=== PATIENT | female | born 1960 | race African-American/Black ===

== ENCOUNTER 2016-05-09 19:44 | Emergency (ER) | payer OTHER ==
[2016-05-09 19:58] VITALS: BP 161/97; PULSE 89; TEMP 98.1; BMI 32.5
--- NOTE | 2016-05-09 20:02 | PDOC ---
[id number] 4d LT SHOULDER PAIN - History of Present Illness Initial Comments: 05/09/16 20:02 CHIEF COMPLAINT: Shoulder pain HISTORY OF PRESENT ILLNESS: 55 yo F with PMH of glaucoma presents to [facility] with shoulder pain x 2 days. [place] when her bag fell off her shoulder and "kind of jerked it down." Over the next two days her shoulder has been increasing in pain and today she feels like she can't move it. Patient denies any other trauma or gross injury to shoulder. Patient states the pain begins at nape of neck and is worst over her left shoulder. She denies any chest pain, shortness of breath, headache, change in speech or vision, or difficulty walking. PAST MEDICAL HISTORY: glaucoma s/p lens implant FAMILY HISTORY: Denies SOCIAL HISTORY:Denies tobacco, alcohol, illicit drug use. SURGICAL HISTORY: Denies ALLERGIES: No known drug allergies REVIEW OF SYSTEMS General/Constitutional: Denies fever or chills. HEENT: Denies change in vision. Denies ear pain or discharge. Denies sore throat. Cardiovascular: Denies chest pain or shortness of breath. Gastrointestinal: Denies nausea, vomiting, diarrhea or constipation. Musculoskeletal: "My shoulder hurts." Skin: Denies bruising. Neurologic: Denies headache, vertigo, loss of consciousness, or loss of sensation. PHYSICAL EXAM General Appearance: Well-appearing, appropriately dressed. No apparent distress , no intoxication. HEENT: L lens implant. No conjunctival pallor. No photophobia, scleral icterus. Neck: Supple. No midline tenderness to cervical spine. Trachea midline. No tenderness, rigidity, carotid bruit, stridor, lymphadenopathy, or thyromegaly. Respiratory/Chest: Lungs CTAB. Cardiovascular: RRR. S1, S2. Musculoskeletal/Extremities: Limited ROM to L shoulder, limited abduction. Positive Neer-Bose test. Positive empty can test. Tenderness to supraspinatus muscle on palpation. Pelvis Stable. No CVA tenderness. Integumentary: Appropriate color, dry, warm. No cyanosis, erythema, jaundice or rash Neurologic: medical dosimetrist II-XII intact. Fully oriented, alert. Appropriate mood/affect. Motor strength 5/5. No appreciable EOM palsy, facial droop or sensory deficit. Past History - Past Medical History Allergies/Adverse Reactions: Allergies Allergy/AdvReac Type Severity Reaction Status Date / Time No Known Allergies Allergy Verified 05/09/16 19:56 Home Medications: Ambulatory Orders Naproxen [Naprosyn -] 250 mg PO BID #14 tablet 05/09/16 Other medical history: narrow angle glaucoma - Psycho/Social/Smoking Cessation Hx Anxiety: No Suicidal Ideation: No Smoking Status: No Smoking History: Never smoked Have you smoked in the past 12 months: No Number of Cigarettes Smoked Daily: 0 Information on smoking cessation initiated: No 'Breaking Loose' booklet given: 01/09/12 Hx Alcohol Use: No Drug/Substance Use Hx: No Substance Use Type: None Hx Substance Use Treatment: No *Physical Exam - Vital Signs Last Vital Signs Temp Pulse Resp BP Pulse Ox 98.1 F 89 18 161/97 99 05/09/16 19:56 05/09/16 19:56 05/09/16 19:56 05/09/16 19:56 05/09/16 19:56 Medical Decision Making - Medical Decision Making 55 yo F with hx of glaucoma presents to [facility] with left shoulder pain. -left shoulder x-ray -Toradol 60 mg IM X-ray negative for fracture or dislocation, but findings indicate possible rotator cuff pathology. This is consistent with clinical presentation and physical exam, will discharge to home with meds for pain control and close follow up with ortho. -250 mg Naproxen bid x 1 week Advised patient to take medication as prescribed and that she must follow up with ortho. Ortho referral provided. Advised patient of signs and symptoms for return to ER; patient verbalized understanding and agrees to plan. *DC/Admit/Observation/Transfer Diagnosis at time of Disposition: Tendinopathy of rotator cuff Qualifiers: Laterality: left Qualified Code(s): M67.912 - Unspecified disorder of synovium and tendon, left shoulder - Discharge Dispostion Disposition: HOME Condition at time of disposition: Stable Admit: No - Prescriptions Prescriptions: Naproxen [Naprosyn -] 250 mg PO BID #14 tablet - Referrals Referrals: Tori Virk MD [Primary Care Provider] - Alvaro Jean Baptiste MD [Staff Physician] - - Patient Instructions Printed Discharge Instructions: DI for Rotator Cuff Injury, Shoulder Tendinopathy Additional Instructions: Please take medication as prescribed and follow up with orthopedics on Wednesday further evaluation and possible referral to physical therapy. If you experience numbness or tingling, loss of sensation, increased pain, chest pain, shortness of breath, sudden sharp headache, or any new or worsening symptoms please return to the ER.
[2016-05-09] MEDS ORDERED: KETOROLAC TROMETHAMINE 60 MG/2 ML VIAL IM ONE (20:22)
== END 2016-05-09 21:14 | disposition home or self-care (01) ==
LOC: JERFT 19:44
PROC: 3E0233Z Introduction of Anti-inflammatory into Muscle, Percutaneous Approach (ICD-10-PCS; principal; 2016-05-09)
DX: M67.912 Unspecified disorder of synovium and tendon, left shoulder (principal)
CPT/HCPCS: 73030-TC-LT; 99281-25

== ENCOUNTER 2016-07-27 19:59 | Emergency (ER) | payer OTHER ==
[2016-07-27 20:19] VITALS: BP 170/90; PULSE 87; TEMP 99.3; BMI 36.2
[2016-07-27] MEDS ORDERED: KETOROLAC TROMETHAMINE 60 MG/2 ML VIAL IM ONE (21:42)
[2016-07-27] MEDS ORDERED: diazePAM 5 MG TABLET PO ONE (21:42)
[2016-07-27] MEDS ORDERED: KETOROLAC TROMETHAMINE 60 MG/2 ML VIAL ONE (21:47)
[2016-07-27] MEDS ORDERED: diazePAM 5 MG TABLET ONE (21:47)
--- NOTE | 2016-07-27 21:47 | PDOC ---
History of Present Illness - General Chief Complaint: Pain Stated Complaint: HIP PAIN/RT LEG PAIN Time Seen by Provider: 07/27/16 21:27 History Source: Patient - History of Present Illness Occurred: reports: other Severity: reports: severe Pain Location: reports: lower extremity Method of Injury: Yes: fall Past History - Past Medical History Allergies/Adverse Reactions: Allergies Allergy/AdvReac Type Severity Reaction Status Date / Time No Known Allergies Allergy Verified 07/27/16 20:15 Home Medications: Ambulatory Orders Acetaminophen [Tylenol -] 1,000 mg PO Q6H 07/27/16 Cyclobenzaprine HCl [Flexeril 10 mg] 10 mg PO TID PRN #9 tablet 07/27/16 Tramadol HCl 50 mg PO Q6H #15 tablet MDD 200mg 07/27/16 - Psycho/Social/Smoking Cessation Hx Anxiety: No Suicidal Ideation: No Smoking Status: No Smoking History: Never smoked Have you smoked in the past 12 months: No Number of Cigarettes Smoked Daily: 0 'Breaking Loose' booklet given: 01/09/12 Hx Alcohol Use: No Drug/Substance Use Hx: No Substance Use Type: None Hx Substance Use Treatment: No Review of Systems - Review of Systems Musculoskeletal: Yes: Joint Pain. No: Joint Swelling *Physical Exam - Vital Signs Last Vital Signs Temp Pulse Resp BP Pulse Ox 99.3 F 87 18 170/90 99 07/27/16 20:17 07/27/16 20:17 07/27/16 20:17 07/27/16 20:17 07/27/16 20:17 - Physical Exam General Appearance: Yes: Appropriately Dressed, Mild Distress HEENT: positive: Normal Voice Neck: positive: Supple Respiratory/Chest: negative: Respiratory Distress Gastrointestinal/Abdominal: positive: Soft. negative: Tender Musculoskeletal: negative: Vertebral Tenderness Extremity: positive: Normal Inspection, Tender (to lateral aspect of R hip, no RLE joint swelling or deformity, NVI, limping in ED) Integumentary: positive: Dry, Warm Neurologic: positive: Fully Oriented, Alert, Normal Mood/Affect Medical Decision Making - Medical Decision Making 07/27/16 21:43 56-year-old female history of glaucoma, here with severe right hip pain s/p. Patient states 5 days ago, she tripped while on the street but did not fall. Suspects she might have "twisted"right hip in the process. Has been able to bear weight but painful. Currently limping. Taking Tylenol with no relief. See exam R hip pain s/p near fall M/l MSK No e/o serious injury at this time -pain control in ED>reassess 07/27/16 22:22 Pt reports some improvement w/ meds. Will dc w/ rx and cane. To f/u with PMD as needed *DC/Admit/Observation/Transfer Diagnosis at time of Disposition: Hip strain Qualifiers: Encounter type: initial encounter Laterality: right Qualified Code(s): S76.011A - Strain of muscle, fascia and tendon of right hip, initial encounter - Discharge Dispostion Disposition: HOME Condition at time of disposition: Improved - Prescriptions Prescriptions: Cyclobenzaprine HCl [Flexeril 10 mg] 10 mg PO TID PRN #9 tablet PRN Reason: Pain Tramadol HCl 50 mg PO Q6H #15 tablet MDD 200mg - Referrals Referrals: Tori Virk MD [Primary Care Provider] - - Patient Instructions Printed Discharge Instructions: Muscle Strain Additional Instructions: Take medications as directed and follow up with your PMD if pain persists
[2016-07-27] MEDS ORDERED: traMADol HCL 50 MG TABLET PO ONE (22:24)
[2016-07-27] MEDS ORDERED: traMADol HCL 50 MG TABLET ONE (22:26)
== END 2016-07-27 22:28 | disposition home or self-care (01) ==
LOC: JERFT 19:59
PROC: 3E0233Z Introduction of Anti-inflammatory into Muscle, Percutaneous Approach (ICD-10-PCS; principal; 2016-07-27)
DX: S76.011A Strain of muscle, fascia and tendon of right hip, initial encounter (principal); W18.49XA Other slipping, tripping and stumbling without falling, initial encounter; Y93.89 Activity, other specified; Y92.414 Local residential or business street as the place of occurrence of the external cause; Y99.8 Other external cause status
CPT/HCPCS: 99281-25

== ENCOUNTER 2016-09-29 23:33 | Emergency (ER) | payer OTHER ==
[2016-09-29 23:55] VITALS: BP 159/99; PULSE 88; TEMP 98.5; BMI 36.8
--- NOTE | 2016-09-30 00:05 | PDOC ---
History of Present Illness - General History Source: Patient Exam Limitations: No Limitations - History of Present Illness Initial Comments: 09/30/16 00:51 The patient is a 56-year-old female, with a significant past medical history of narrow angle glaucoma, who presents to the ED with chest pain today. The pt began to experience the pain after lifting up a baby. The pain is located at the left sternal border under her left breast with radiation to her back. She describes the pain as sharp in nature and 1/10 severity. She also reports slight shortness of breath and headache with this pain. Pts last menstrual period was a few days ago. The patient denies any fever, chills, nausea, diarrhea, or abdominal pain. The patient denies any recent sick contacts or travel. She denies any tobacco use, alcohol use, or drug use. <Elly Reed - Last Filed: 09/30/16 01:47> - General History Source: Patient <PanchoHonorio walton - Last Filed: 09/30/16 02:30> - General Chief Complaint: Chest Pain Stated Complaint: CHEST PAIN Time Seen by Provider: 09/29/16 23:40 Past History <Elly Reed - Last Filed: 09/30/16 01:47> - Psycho/Social/Smoking Cessation Hx Anxiety: No Suicidal Ideation: No Smoking Status: No Smoking History: Never smoked Have you smoked in the past 12 months: No Number of Cigarettes Smoked Daily: 0 Information on smoking cessation initiated: No 'Breaking Loose' booklet given: 01/09/12 Hx Alcohol Use: No Drug/Substance Use Hx: No Substance Use Type: None Hx Substance Use Treatment: No <Honorio Huntley - Last Filed: 09/30/16 02:30> - Past Medical History Allergies/Adverse Reactions: Allergies Allergy/AdvReac Type Severity Reaction Status Date / Time No Known Allergies Allergy Verified 09/29/16 23:54 Home Medications: Ambulatory Orders NK [No Known Home Medication] 09/29/16 Review of Systems - Review of Systems Able to Perform ROS?: Yes Comments:: 09/30/16 00:51 CONSTITUTIONAL: Absent: fever, chills, diaphoresis, generalized weakness, malaise, loss of appetite HEENT: Absent: rhinorrhea, nasal congestion, throat pain, throat swelling, difficulty swallowing, mouth swelling, ear pain, eye pain, visual Changes CARDIOVASCULAR: Present: chest pain Absent: syncope, palpitations, irregular heart rate, lightheadedness, peripheral edema RESPIRATORY: Present: shortness of breath Absent: cough, dyspnea with exertion, orthopnea, wheezing, stridor, hemoptysis GASTROINTESTINAL: Absent: abdominal pain, abdominal distension, nausea, vomiting, diarrhea, constipation, melena, hematochezia GENITOURINARY: Absent: dysuria, frequency, urgency, hesitancy, hematuria, flank pain, genital pain MUSCULOSKELETAL: Present: back pain Absent: arthralgia, joint swelling SKIN: Absent: rash, itching, pallor HEMATOLOGIC/IMMUNOLOGIC: Absent: easy bleeding, easy bruising, lymphadenopathy, frequent infections ENDOCRINE: Absent: unexplained weight gain, unexplained weight loss, heat intolerance, cold intolerance NEUROLOGIC: Present: headache Absent: focal weakness or paresthesias, dizziness, unsteady gait, seizure, mental status changes, bladder or bowel incontinence PSYCHIATRIC: Absent: anxiety, depression, suicidal or homicidal ideation, hallucinations. <Elly Reed - Last Filed: 09/30/16 01:47> *Physical Exam - Vital Signs Last Vital Signs Temp Pulse Resp BP Pulse Ox 98.5 F 88 14 159/99 96 09/29/16 23:51 09/29/16 23:51 09/29/16 23:51 09/29/16 23:51 09/29/16 23:51 - Physical Exam Comments: 09/30/16 00:53 Well developed, well nourished. Awake and alert. No acute distress. HEENT: Normocephalic, atraumatic. PERRLA, EOMI. No conjunctival pallor. Sclera are non- icteric. Moist mucous membranes. Oropharynx is clear. NECK: Supple. Full ROM. No JVD. Carotid pulses 2+ and symmetric, without bruits. No thyromegaly. No lymphadenopathy. CARDIOVASCULAR: Regular rate and rhythm. No murmurs, rubs, or gallops. Distal pulses are 2+ and symmetric. PULMONARY: No evidence of respiratory distress. Lungs clear to auscultation bilaterally. No wheezing, rales or rhonchi. ABDOMINAL: Soft. Non-tender. Non-distended. No rebound or guarding. No organomegaly. Normoactive bowel sounds. MUSCULOSKELETAL Normal range of motion at all joints. No bony deformities or tenderness. No CVA tenderness. EXTREMITIES: No cyanosis. No clubbing. No edema. No calf tenderness. SKIN: Warm and dry. Normal capillary refill. No rashes. No jaundice. NEUROLOGICAL: Alert, awake, appropriate. PSYCHIATRIC: Cooperative. Good eye contact. Appropriate mood and affect. <Elly Reed - Last Filed: 09/30/16 01:47> - Vital Signs Last Vital Signs Temp Pulse Resp BP Pulse Ox 98.5 F 88 14 159/99 96 09/29/16 23:51 09/29/16 23:51 09/29/16 23:51 09/29/16 23:51 09/29/16 23:51 <Honorio Huntley - Last Filed: 09/30/16 02:30> Heart Score/ECG Review - ECG Intrepretation Comment:: 09/30/16 01:47 EKG was reviewed by Dr. Huntley at 23:45. Impression: Normal sinus rhythm. Possible left atrial enlargement. Incomplete right bundle branch block. Vent. rate: 83 bpm NH Interval: 180 ms QTc: 453 ms <Elly Reed - Last Filed: 09/30/16 01:47> ED Treatment Course - LABORATORY CBC & Chemistry Diagram: 09/30/16 00:15 09/30/16 00:46 - ADDITIONAL ORDERS Additional order review: Laboratory Results 09/30/16 09/30/16 00:15 00:15 INR Cancelled D-Dimer Cancelled Sodium Cancelled Potassium Cancelled Chloride Cancelled Carbon Dioxide Cancelled Anion Gap Cancelled BUN Cancelled Creatinine Cancelled Creat Clearance w eGFR Cancelled Random Glucose Cancelled Calcium Cancelled Total Bilirubin Cancelled AST Cancelled ALT Cancelled Alkaline Phosphatase Cancelled Creatine Kinase Cancelled Troponin I Cancelled Total Protein Cancelled Albumin Cancelled 09/30/16 00:15 RBC 4.51 MCV 83.6 MCHC 32.5 RDW 15.2 D MPV 9.3 Neutrophils % 37.0 L D Lymphocytes % 48.6 H D Monocytes % 8.0 Eosinophils % 5.7 H D Basophils % 0.7 - Medications Given in the ED: ED Medications Discontinued Medications Generic Name Dose Route Start Last Admin Trade Name Freq PRN Reason Stop Dose Admin Aspirin 324 mg 09/30/16 00:06 09/30/16 00:07 Asa - PO 09/30/16 00:07 324 mg ONCE ONE Administration <Elly Reed - Last Filed: 09/30/16 01:47> - LABORATORY CBC & Chemistry Diagram: 09/30/16 00:15 09/30/16 00:46 <Honorio Huntley - Last Filed: 09/30/16 02:30> Medical Decision Making - Medical Decision Making 09/30/16 02:29 Dr. Huntley: The scribe's documentation has been prepared under my direction and personally reviewed by me in its entirery. I confirm that the note above accurately reflects all work, treatment, procedures, and medical decision making performed by me. <Honorio Huntley - Last Filed: 09/30/16 02:30> *DC/Admit/Observation/Transfer - Attestations Scribe Attestion: 09/30/16 00:54 Documentation prepared by Elly Reed, acting as medical office receptionist assistant for Honorio Huntley MD. <Elly Reed - Last Filed: 09/30/16 01:47> - Discharge Dispostion Admit: No <Honorio Huntley - Last Filed: 09/30/16 02:30> Diagnosis at time of Disposition: Chest pain - Discharge Dispostion Disposition: HOME Condition at time of disposition: Stable - Referrals Referrals: Tori Virk MD [Primary Care Provider] - Zeeshan Rod MD [Staff Physician] - - Patient Instructions Printed Discharge Instructions: DI for Chest Pain Additional Instructions: Please follow up with your doctor by Wednesday for re-evaluation. - Post Discharge Activity Work/School Note: Back to Work
[2016-09-30] MEDS ORDERED: ASPIRIN 81 MG CHEWABLE TABLETS PO ONE (00:06)
[2016-09-30] MEDS ORDERED: ASPIRIN 81 MG CHEWABLE TABLETS ONE (00:10)
[2016-09-30 00:29] LABS: BASOPHIL 0.7 % (0-2.0); EOSINOPHIL 5.7 % (0-4.5); MCH 27.2 pg (25.7-33.7); MCHC 32.5 g/dl (32.0-36.0); MEAN CELL VOLUME 83.6 fl (80-96); MEAN PLT VOLUME 9.3 fl (7.5-11.1); PLATELET COUNT 228 K/MM3 (134-434); RDW 15.2 % (11.6-15.6)
[2016-09-30 01:16] LABS: INR 1.05 (0.82-1.09); PROTHROMBIN TIME (PATIENT) 11.6 SEC (9.98-11.88)
[2016-09-30 01:31] LABS: ALBUMIN 3.4 g/dl (3.4-5.0); ANION GAP 9 (8-16); BILIRUBIN,TOTAL 0.2 mg/dL (0.2-1.0); CALCIUM 8.9 mg/dL (8.5-10.1); CO2 28 mmol/L (21-32); CREATININE 1.2 mg/dL (0.55-1.02); GLUCOSE,RANDOM 163 mg/dL (74-106); SGOT/AST 24 U/L (15-37); SGPT/ALT 33 U/L (12-78); TOT PROT 7.2 g/dl (6.4-8.2)
[2016-09-30 01:34] LABS: ALK PHOS 96 U/L (45-117); TROPONIN I < 0.02 ng/ml (0.00-0.05)
--- NOTE | 2016-10-01 11:14 | EKG ---
Test Reason : Blood Pressure : / mmHG Vent. Rate : 083 BPM Atrial Rate : 083 BPM P-R Int : 180 ms QRS Dur : 110 ms QT Int : 386 ms P-R-T Axes : 061 060 022 degrees QTc Int : 453 ms NORMAL SINUS RHYTHM POSSIBLE LEFT ATRIAL ENLARGEMENT INCOMPLETE RIGHT BUNDLE BRANCH BLOCK BORDERLINE ECG WHEN COMPARED WITH ECG OF 08-JAN-2012 15:50, NO SIGNIFICANT CHANGE WAS FOUND Confirmed by MYLES LIU MD ([id number]) on 10/01/2016 11:14:33 AM Referred By: Confirmed By:MYLES LIU MD
== END 2016-09-30 02:57 | disposition home or self-care (01) ==
LOC: JER 23:33
DX: R07.89 Other chest pain (principal); X50.0XXA Overexertion from strenuous movement or load, initial encounter; Y93.F2 Activity, caregiving, lifting; Y92.89 Other specified places as the place of occurrence of the external cause; Y99.9 Unspecified external cause status
CPT/HCPCS: 36415; 71010-TC; 80053; 82550; 82553; 84484; 84703; 85025; 85379; 85610; 86850; 86900; 86901; 93005; 93010; 99283-25

== ENCOUNTER 2017-09-28 23:36 | Emergency (ER) | payer OTHER ==
[2017-09-29 01:15] VITALS: BP 154/89; PULSE 72; TEMP 98.1; BMI 37.5
--- NOTE | 2017-09-29 01:41 | PDOC ---
History of Present Illness - General History Source: Patient, Old Records Exam Limitations: No Limitations - History of Present Illness Initial Comments: 09/29/17 01:48 The patient is a 57-year-old female, with a significant past medical history of narrow angle glaucoma, who presents to the ED with headache for 5 days. The patient reports that her headache began Wednesday and has been progressively worsening since. She has taken tylenol, most recently 5 hours ago, with no alleviation of pain. She reports that she saw her Opthamologist 2 weeks ago and her pressure levels were found to be normal. The patient saw her dentist yesterday for associated tooth pain and was found to be normal but was prescribed amoxicillin for potential infection. She reports associated nausea and sinus congestion for 2 days. She reports that she used a neti pot to treat her sinus congestion with no relief. She denies fever, rhinorrhea, and history of smoking. Surgical history is positive for travectomy. <Kyree Serrato - Last Filed: 09/29/17 01:48> <Sneha Ortega - Last Filed: 09/29/17 03:02> - General Chief Complaint: Headache Stated Complaint: PAIN Time Seen by Provider: 09/29/17 01:08 Past History <Kyree Serrato - Last Filed: 09/29/17 01:48> - Suicide/Smoking/Psychosocial Hx Smoking Status: No Smoking History: Never smoked Have you smoked in the past 12 months: No Number of Cigarettes Smoked Daily: 0 Information on smoking cessation initiated: No 'Breaking Loose' booklet given: 01/09/12 Hx Alcohol Use: No Drug/Substance Use Hx: No Substance Use Type: None Hx Substance Use Treatment: No <Sneha Ortega - Last Filed: 09/29/17 03:02> - Past Medical History Allergies/Adverse Reactions: Allergies Allergy/AdvReac Type Severity Reaction Status Date / Time No Known Allergies Allergy Verified 09/29/16 23:54 Home Medications: Ambulatory Orders Amoxicillin/Potassium Clav [Augmentin 875-125 Tablet] 1 each PO BID #30 tablet 09/29/17 Review of Systems - Review of Systems Able to Perform ROS?: Yes Comments:: 09/29/17 01:48 CONSTITUTIONAL: (+) Sinus congestion Absent: fever, no chills, no fatigue EYES: Absent: visual changes ENT: Absent: ear pain, no sore throat CARDIOVASCULAR: Absent: chest pain, no palpitations RESPIRATORY: Absent: cough, no SOB GI: (+) Nausea Absent: abdominal pain, no vomiting, no constipation, no diarrhea GENITOURINARY: Absent: dysuria, no frequency, no hematuria MUSCULOSKELETAL: Absent: back pain, no arthralgia, no myalgia SKIN: Absent: rash NEURO: (+) headache <SharrimaricelKyree - Last Filed: 09/29/17 01:48> *Physical Exam - Vital Signs Last Vital Signs Temp Pulse Resp BP Pulse Ox 98.1 F 72 19 154/89 98 09/28/17 23:45 09/28/17 23:45 09/28/17 23:45 09/28/17 23:45 09/28/17 23:45 - Physical Exam Comments: 09/29/17 01:48 GENERAL: Well-appearing, well-nourished. No apparent distress. HEENT: Normocephalic, atraumatic. PERRL, EOM intact. CARDIOVASCULAR: Normal S1, S2. Regular rate and rhythm. PULMONARY: Clear to auscultation bilaterally. ABDOMEN: Soft, non-distended, non-tender. EXTREMITIES: Normal ROM in all four extremities. No gross deformities. SKIN: Warm, dry. No rash NEUROLOGICAL: No focal neurological deficits. <JimenezmaricelKyree - Last Filed: 09/29/17 01:48> - Vital Signs Last Vital Signs Temp Pulse Resp BP Pulse Ox 98.1 F 72 19 154/89 98 09/28/17 23:45 09/28/17 23:45 09/28/17 23:45 09/28/17 23:45 09/28/17 23:45 <Sneha Ortega - Last Filed: 09/29/17 03:02> Medical Decision Making - Medical Decision Making 09/29/17 03:00 57-year-old female states that she has had headache days presents to the emergency department. She does have a history of closed angle glaucoma but saw her wire roller and her pressures were normal. She did see the dentist thinking she had a toothache, but she did not have any dental pathology [facility] came to the emergency department CAT scan showed acute left maxillary sinusitis. It was no bleed. No mass or extra-axial fluid collection. There is no skull fracture or skull lesion. There was a prominent mucosal thickening and large air-fluid level in the left maxillary sinus consistent with acute sinusitis and the probable cause of the patient's headache. Patient has no gross focal neural deficits at this time Antibiotics were sent to her [facility] pharmacy. Impression acute left maxillary sinusitis <Sneha Ortega - Last Filed: 09/29/17 03:02> *DC/Admit/Observation/Transfer - Attestations Scribe Attestion: 09/29/17 01:48 Documentation prepared by Kyree Serrato, acting as medical assistant dermatology for Sneha Ortega MD. <Kyree Serrato - Last Filed: 09/29/17 01:48> <Sneha Ortega - Last Filed: 09/29/17 03:02> Diagnosis at time of Disposition: Acute sinusitis Qualifiers: Sinusitis location: maxillary Recurrence: recurrent Qualified Code(s): J01.01 - Acute recurrent maxillary sinusitis - Discharge Dispostion Disposition: HOME Condition at time of disposition: Stable - Prescriptions Prescriptions: Amoxicillin/Potassium Clav [Augmentin 875-125 Tablet] 1 each PO BID #30 tablet - Referrals Referrals: Tori Virk MD [Primary Care Provider] - - Patient Instructions Printed Discharge Instructions: DI for Sinusitis Additional Instructions: -please hop picker your antibiotics -followup with your doctor or the ENT specialist - Post Discharge Activity
[2017-09-29] MEDS ORDERED: IBUPROFEN 400 MG TABLET (FP) PO ONE ×2 (02:57→03:16)
[2017-09-29] MEDS ORDERED: AMOX TR/POT CLAV 875MG/125MG TABLETS (FP) PO STA (02:57)
[2017-09-29] MEDS ORDERED: AMOX TR/POT CLAV 875MG/125MG TABLETS (FP) ONE (03:16)
== END 2017-09-29 03:00 | disposition home or self-care (01) ==
LOC: JER 23:36
DX: J01.01 Acute recurrent maxillary sinusitis (principal)
CPT/HCPCS: 70450-TC; 99282-25